=== PATIENT | female | born 1935 | race Caucasian/White ===

== ENCOUNTER → 2017-07-11 | Outpatient (CLI) | payer OTHER, MEDICARE | LOC: BHFA 10:45 | PROVIDERS: ATTEND Internal Medicine Cardiovascular Disease | DX: I25.10 Atherosclerotic heart disease of native coronary artery without angina pectoris (principal); E78.5 Hyperlipidemia, unspecified ==

== ENCOUNTER 2018-10-07 17:06 | Emergency (ER) | payer OTHER, MEDICARE ==
--- NOTE | 2018-10-07 17:23 | EDPHY ---
H & P Stated Complaint: hypertension Time Seen by Provider: 10/07/18 17:22 HPI/ROS: CHIEF COMPLAINT: Hypertension, slight headache HISTORY OF PRESENT ILLNESS: The patient presents the ED with 2 days of high blood pressure with a systolic in the 200 range. The patient has had symptoms of a mild frontal headache. She denies any unilateral numbness or weakness. She denies speech problems, vision loss or ataxia. The patient currently takes 50 mg of metoprolol and 100 mg of Cozaar in the morning. The patient denies any chest pain or shortness of breath. She denies any acute abdominal pain, nausea, vomiting or diarrhea. REVIEW OF SYSTEMS: A comprehensive 10 point review of systems is otherwise negative aside from elements mentioned in the history of present illness. Source: Patient Exam Limitations: No limitations - Personal History Current Tetanus/Diphtheria Vaccine: No Current Tetanus Diphtheria and Acellular Pertussis (TDAP): No - Medical/Surgical History Hx Asthma: No Hx Chronic Respiratory Disease: No Hx Diabetes: No Hx Cardiac Disease: No Hx Renal Disease: No Hx Cirrhosis: No Hx Alcoholism: No Hx HIV/AIDS: No Hx Splenectomy or Spleen Trauma: No Other PMH: HTN, - Social History Smoking Status: Former smoker - Physical Exam Exam: General Appearance: Alert, no distress Eyes: Pupils equal and round no pallor or injection ENT, Mouth: Mucous membranes moist Respiratory: There are no retractions, lungs are clear to auscultation Cardiovascular: Regular rate and rhythm Gastrointestinal: Abdomen is soft and nontender, no masses, bowel sounds normal Neurological: A&O, normal motor function, normal sensory exam, normal cranial nerves Skin: Warm and dry, no rashes Musculoskeletal: Neck is supple nontender Extremities: symmetrical, full range of motion Constitutional: Initial Vital Signs Temperature (C) 37.4 C 10/07/18 17:13 Heart Rate 70 10/07/18 17:13 Respiratory Rate 16 10/07/18 17:13 Blood Pressure 212/119 H 10/07/18 17:13 O2 Sat (%) 94 10/07/18 17:13 O2 Delivery Mode Room Air Allergies/Adverse Reactions: morphine Allergy (Verified 10/07/18 17:11) Home Medications: Medication Instructions Recorded Aspirin 10/07/18 Atenolol 10/07/18 Crestor 10/07/18 Losartan Potassium 10/07/18 Medical Decision Making - Diagnostics EKG Interpretation: EKG: Complete interpretation has been separately recorded in the [email or web address] archive. Summary impression: Sinus rhythm, rate 61 ED Course/Re-evaluation: Patient presents to the ED with asymptomatic hypertension. She is noted to be neurologically intact. Blood pressure upon arrival was 212/119. The patient is currently on metoprolol and losartan for management of her hypertension. She has been compliant with her typical dosages these medicines. The patient's EKG demonstrates no evidence of ischemia. Laboratory studies are unremarkable. The patient was treated with 5 mg of Norvasc in the emergency department. She has had improvement of her blood pressure down to 180/80. At this point time I will advise that the patient begin taking Norvasc 5 mg a day. I have asked her to follow up with her primary care provider for a blood pressure recheck within the week. Patient will be discharged home with customary aftercare instructions and return precautions. Differential Diagnosis: Differential diagnosis considered includes hypertensive emergency, stroke, TIA, acute coronary syndrome, metabolic derangement - Data Points Laboratory Results: Laboratory Results 10/07/18 17:30 10/07/18 17:30 10/07/18 10/07/18 17:30 17:30 WBC 10.31 10^3/uL H 10^3/uL (3.80-9.50) RBC 4.93 10^6/uL 10^6/uL (4.18-5.33) Hgb 14.1 g/dL g/dL (12.6-16.3) Hct 42.2 % % (38.0-47.0) MCV 85.6 fL fL (81.5-99.8) MCH 28.6 pg pg (27.9-34.1) MCHC 33.4 g/dL g/dL (32.4-36.7) RDW 13.7 % % (11.5-15.2) Plt Count 255 10^3/uL 10^3/uL (150-400) MPV 9.5 fL fL (8.7-11.7) Neut % (Auto) 65.3 % % (39.3-74.2) Lymph % (Auto) 23.7 % % (15.0-45.0) Lee % (Auto) 8.6 % % (4.5-13.0) Eos % (Auto) 1.0 % % (0.6-7.6) Baso % (Auto) 1.1 % % (0.3-1.7) Nucleat RBC Rel Count 0.0 % % (0.0-0.2) Absolute Neuts (auto) 6.74 10^3/uL H 10^3/uL (1.70-6.50) Absolute Lymphs (auto) 2.44 10^3/uL 10^3/uL (1.00-3.00) Absolute Monos (auto) 0.89 10^3/uL H 10^3/uL (0.30-0.80) Absolute Eos (auto) 0.10 10^3/uL 10^3/uL (0.03-0.40) Absolute Basos (auto) 0.11 10^3/uL H 10^3/uL (0.02-0.10) Absolute Nucleated RBC 0.00 10^3/uL 10^3/uL (0-0.01) Immature Gran % 0.3 % % (0.0-1.1) Immature Gran # 0.03 10^3/uL 10^3/uL (0.00-0.10) Sodium 138 mEq/L mEq/L (135-145) Potassium 4.0 mEq/L mEq/L (3.5-5.2) Chloride 105 mEq/L mEq/L (97-110) Carbon Dioxide 23 mEq/l mEq/l (22-31) Anion Gap 10 mEq/L mEq/L (6-14) BUN 17 mg/dL mg/dL (7-23) Creatinine 0.9 mg/dL mg/dL (0.6-1.0) Estimated GFR 60 Glucose 90 mg/dL mg/dL (70-100) Calcium 9.4 mg/dL mg/dL (8.5-10.4) Medications Given: Discontinued Medications Amlodipine Besylate (Norvasc) 5 mg PO EDNOW ONE Stop: 10/07/18 17:29 Last Admin: 10/07/18 17:37 Dose: 5 mg Departure - Departure Disposition: Home, Routine, Self-Care Clinical Impression: Hypertension Condition: Good Instructions: Hypertension (ED) Additional Instructions: 1. Please begin taking Norvasc 5 mg once a day. I do recommend taking this medication in the evening. 2. Please keep a log of your blood pressure each morning and night. You should follow up with your primary care provider for a recheck. 3. Please return to the ED for markedly worsening symptoms including severe headache, numbness, weakness, slurred speech, chest pain or shortness of breath. Referrals: Charly Tripp MD [Primary Care Provider] - As per Instructions
[2018-10-07] MEDS ORDERED: amLODIPine BESYLATE 5 MG TAB PO ONE (17:28)
[2018-10-07 17:46] LABS: PLATELET COUNT 255 10^3/uL (150-400)
--- NOTE | 2018-10-07 18:58 | CPEKG ---
Test Reason : OPEN Blood Pressure : / mmHG Vent. Rate : 061 BPM Atrial Rate : 061 BPM P-R Int : 188 ms QRS Dur : 091 ms QT Int : 433 ms P-R-T Axes : 061 -14 027 degrees QTc Int : 437 ms Sinus rhythm Abnormal R-wave progression, early transition Confirmed by Eulogio Bryant ([id number]) on 10/07/2018 6:57:55 PM Referred By: Eulogio Bryant Confirmed By:Eulogio Bryant
[2018-10-07 19:37] VITALS: BP 175/88
== END 2018-10-07 19:45 | disposition home or self-care (01) ==
DX: R51 Headache (principal); I10 Essential (primary) hypertension